=== PATIENT | female | born 1955 | race Caucasian/White ===

== ENCOUNTER → 2024-06-08 14:36 | Outpatient (BNVA) | payer MEDICARE, MEDICAID, SELFPAY | PROVIDERS: Visit Provider Physician Assistant | DX: M25.551 Pain in right hip (principal); M25.552 Pain in left hip; M16.11 Unilateral primary osteoarthritis, right hip; M89.9 Disorder of bone, unspecified | CPT/HCPCS: 73502; 99203 ==

== ENCOUNTER → 2024-07-13 08:50 | Outpatient (BNVA) | payer MEDICARE, SELFPAY | PROVIDERS: Visit Provider Student in an Organized Health Care Education/Training Program | DX: M16.11 Unilateral primary osteoarthritis, right hip (principal); M89.9 Disorder of bone, unspecified | CPT/HCPCS: 99214 ==

== ENCOUNTER → 2024-12-28 15:26 | Outpatient (BNVA) | payer OTHER, MEDICAID, SELFPAY | PROVIDERS: Visit Provider Student in an Organized Health Care Education/Training Program | DX: M25.551 Pain in right hip (principal); M25.552 Pain in left hip; M16.11 Unilateral primary osteoarthritis, right hip; M89.9 Disorder of bone, unspecified | CPT/HCPCS: 73523; 99214 ==

== ENCOUNTER 2025-01-09 10:35 | Outpatient (CLI) | payer OTHER, MEDICAID, SELFPAY ==
--- NOTE | 2025-01-09 11:00 | CT_ITS ---
WS: [id number] CT RIGHT hip for [facility] procedure HISTORY: RIGHT TOTAL HIP ARTHROPLASTY Comparison CT 05/05/2024 Date: 01/09/2025 10:51 AM TECHNIQUE: Protocol for [facility] total hip replacement has been obtained. This includes axial imaging from the hip joint through the knee joint. DLP: [id number] FINDINGS: Advanced joint arthritis RIGHT hip with [id number] articulation. Subchondral cystic change involving the femoral head and acetabulum with sclerosis. Moderate to advanced treatment change LEFT hip with subchondral cystic change in the femoral head and acetabulum. Stable lytic and sclerotic lesions LEFT acetabulum and LEFT proximal femur. Small fat-containing umbilical hernia. Stable sclerosis with cystic change involving the sacroiliac joints. CT/CT hip RT [facility] [id number] IMPRESSION: CT imaging provided for [facility] robotic total hip replacement.
== END 2025-01-09 10:36 | disposition home or self-care (01) ==
LOC: RAD 10:37
PROVIDERS: Visit Provider Student in an Organized Health Care Education/Training Program
DX: M13.851 Other specified arthritis, right hip (principal); K42.9 Umbilical hernia without obstruction or gangrene; I70.0 Atherosclerosis of aorta; N28.1 Cyst of kidney, acquired; G95.89 Other specified diseases of spinal cord
CPT/HCPCS: 73700

== ENCOUNTER 2025-01-30 10:14 | Outpatient (CLI) | payer OTHER, MEDICAID, SELFPAY ==
[2025-01-30 11:15] LABS: Hematocrit 38.5 % (36-47); Hemoglobin 12.60 g/dL (11.27-16.99); Mean Corpuscular HGB Conc 32.7 g/dL (30-55); Mean Corpuscular Hemoglobin 28.2 pg (27-33); Mean Corpuscular Volume 86.1 fl (85-98); Nucleated Red Blood Cells % 0 %; Platelet Count 211 10^3/cmm (157-399); Red Blood Count 4.47 10^6/uL (3.85-5.65); White Blood Count 5.27 10^3/uL (3.29-11.43)
[2025-01-30 11:27] LABS: Glucose Urine UA Negative (Normal); Nitrate Urine Negative (Negative); Specific Gravity, Urine 1.012 (1.005-1.030)
[2025-01-30 11:30] LABS: Alanine Aminotransferase 12 U/L (0-33); Albumin Level 4.1 g/dL (3.5-5.2); Alkaline Phosphatase 79 U/L (35-105); Anion Gap 13.8 (5-19); Aspartate Amino Transferase 20 U/L (0-32); Blood Urea Nitrogen 14 mg/dL (8-23); Calcium 9.1 mg/dL (8.5-10.5); Carbon Dioxide 24 mmol/L (22-29); Chloride 105 mmol/L (98-107); Globulin 2.6 g/dL (1.3-4.6); Glucose 109 mg/dL (65-115); Osmolality Calculated 289 mOsm/kg (285-295); Potassium 3.8 mmol/L (3.5-5.1); Sodium 139 mmol/L (136-145); Total Protein 6.7 g/dL (6.6-8.7)
[2025-01-30 11:51] LABS: Add Urine Microscopic? YES
== END 2025-01-30 10:15 | disposition home or self-care (01) ==
LOC: LAB 10:17
PROVIDERS: Visit Provider Student in an Organized Health Care Education/Training Program
DX: Z01.818 Encounter for other preprocedural examination (principal)
CPT/HCPCS: 36415; 80053; 81001; 85025

== ENCOUNTER → 2025-02-10 08:24 | Outpatient (BNVA) | payer OTHER, MEDICAID, SELFPAY | PROVIDERS: Visit Provider Physician Assistant | DX: M16.11 Unilateral primary osteoarthritis, right hip (principal); M89.9 Disorder of bone, unspecified | CPT/HCPCS: 99213 ==

== ENCOUNTER 2025-02-20 14:58 | Observation (INO) | payer MEDICARE, MEDICAID, SELFPAY ==
[2025-02-20] VITALS (16 sets, daily range): BP systolic 87–150; BP diastolic 53–77; PULSE 59–75; RESP 14–17; TEMP 36.2–36.6; O2SAT 96–100; BMI 30.9
[2025-02-20] MEDS: acetaminophen 1,000 MG/100 ML PIGGYBACK 400 MG IV ×2 (10:51→17:38)
[2025-02-20 10:57] LABS: Hematocrit 40.6 % (36-47); Hemoglobin 13.20 g/dL (11.27-16.99); Mean Corpuscular HGB Conc 32.5 g/dL (30-55); Mean Corpuscular Hemoglobin 28.3 pg (27-33); Mean Corpuscular Volume 86.9 fl (85-98); Nucleated Red Blood Cells % 0 %; Platelet Count 230 10^3/cmm (157-399); Red Blood Count 4.67 10^6/uL (3.85-5.65); White Blood Count 5.33 10^3/uL (3.29-11.43)
[2025-02-20 11:11] LABS: Anion Gap 15.8 (5-19); Blood Urea Nitrogen 15 mg/dL (8-23); Calcium 8.9 mg/dL (8.5-10.5); Carbon Dioxide 23 mmol/L (22-29); Chloride 108 mmol/L (98-107); Creatinine Clr Calc Pharmacy 67.6387; Glucose 95 mg/dL (65-115); Osmolality Calculated 297 mOsm/kg (285-295); Potassium 3.8 mmol/L (3.5-5.1); Sodium 143 mmol/L (136-145)
--- NOTE | 2025-02-20 12:15 | ANES.PREANE2 ---
Pre-Anesthetic Assessment Height/Weight: Height 1.63 m Weight 81.647 kg Temp Pulse Resp BP Pulse Ox O2 Del Method 97.5 F L 75 17 136/77 96 Room Air 02/20/25 10:34 02/20/25 10:34 02/20/25 10:34 02/20/25 10:34 02/20/25 10:34 02/20/25 10:38 Operation Date: 02/20/25 13:20 Proposed Procedures p RIGHT Raciel Robot Total Hip Arthroplasty(Right) - Amador Cabrera DO Familial anesthetic complications: None Was Beta Talib taken within 24 hours: N/A Was Clonidine taken within 24 hours: N/A Last intake: Intake Last Liquid Date 02/19/25 Last Liquid Time 22:00 Last Solid Date 02/19/25 Last Solid Time 18:00 Social No alcohol and No tobacco Exam alert, oriented x 3, clear to auscultation bilaterally and regular rate & rhythm Airway Mallampati: Class II Dentition: full Anesthetic Plan ASA status: 2 Anesthesia: Regional (specify below) Risk of > 500 ml blood loss (7ml/kg in children): No Medications/Allergies Home Medications ?Medication ?Instructions ?Recorded ?Confirmed ?Last Taken ?Type ibuprofen 800 mg tablet 800 mg PO Q8H PRN Pain 01/30/25 02/16/25 02/11/25 History multivitamin (One Daily 1 tab PO DAILY 01/30/25 02/16/25 02/11/25 History Multivitamin tablet) Allergies Allergy/AdvReac Type Severity Reaction Status Date / Time No Known Allergies Allergy Verified 02/10/25 08:37 Current Medications Generic Name Dose Route Start Last Admin Trade Name Freq PRN Reason Stop Dose Admin Sodium Chloride 1,000 mls @ 30 mls/hr 02/20/25 10:30 02/20/25 10:48 Sodium Chloride 0.9% IV 02/21/25 10:29 30 mls/hr .Q24H VIN Administration PFSH Anesthesia Medical History Bilateral hip pain Social History Smoking and tobacco/nicotine status: never used tobacco/nicotine Alcohol intake: never Substance/Drug Use: never Data Anesthesia 02/20/25 10:40 02/20/25 10:40 Short CBC 02/20/25 Range/Units 10:40 WBC 5.33 (3.29-11.43) 10^3/uL Hgb 13.20 (11.27-16.99) g/dL Hct 40.6 (36-47) % MCV 86.9 (85-98) fl Plt Count 230 (157-399) 10^3/cmm Neut % (Auto) 61.0 % Neut # (Auto) 3.25 (1.8-7.7) 10^3/uL BMP 02/20/25 10:40 Sodium 143 Potassium 3.8 Chloride 108 H Carbon Dioxide 23 BUN 15 Creatinine 0.6 Glucose 95 Calcium 8.9
--- NOTE | 2025-02-20 12:31 | W.PM.OPSUD ---
Surgery/Procedure H&P Update DATE OF PROCEDURE: February 20, 2025 DATE H&P PERFORMED: 02/10/25 H&P UPDATE INFORMATION: I have reviewed H&P completed within last 30 days, I have examined patient prior to procedure and No changes to prior documentation PREOP DIAGNOSIS: Right hip DJD PRIMARY INDICATION FOR PROCEDURE: Right hip DJD PLANNED PROCEDURE: Operation Date: 02/20/25 13:20 Proposed Procedures p RIGHT Raciel Robot Total Hip Arthroplasty(Right) - Amador Cabrera DO
[2025-02-20] MEDS: ceFAZolin 2,000 MG in sodium chloride 0.9% (plus) 50 ML 100 MG IV ×2 (13:00→17:39)
[2025-02-20] MEDS: tranexamic acid 1,000 MG/100 ML PREMIX 600 MG IV ×2 (13:20→22:09)
--- NOTE | 2025-02-20 13:51 | SUR.OPER ---
attempted to notify daughter of surgical start. no answer.
--- NOTE | 2025-02-20 13:54 | SUR.OPER ---
Daughter called back, notified of surgical start and progress.
--- NOTE | 2025-02-20 15:00 | XR_ITS ---
WS: [id number] Exam: XR hip RT 2-3V wo/w pel* [id number] Date/Time of Exam: 02/20/2025 3:13 PM Reason For Exam: R SILVIO postop Comparison 12/28/2024. Total RIGHT hip prosthesis in place in satisfactory position. Postop changes in the adjacent soft tissues. Again noted are areas of bony sclerosis in the proximal LEFT femur which are stable in appearance. XR/XR hip RT 2-3V wo/w pel* [id number] IMPRESSION: 1. Total RIGHT hip replacement in satisfactory position.
--- NOTE | 2025-02-20 15:00 | PM.OP ---
Operative Report Date of procedure: February 20, 2025 Surgeon: Amador Cabrera DO Wood Stainer: Dangelo Cabrera PA-C: PA was necessary for assistance in this case with leg positioning, assistance with hip reductions, retraction and protection of neurovascular structures as well as assistance in implantation of total hip prosthesis, assistance in wound closure and dressing application. Procedure: Preop Diagnosis?Right hip degenerative joint disease Post-op diagnosis: Right hip degenerative joint disease Procedure done: Right total hip arthroplasty?robotic assisted Raciel?posterior?approach Implants: [address] total hip arthroplasty implants 50 mm cluster hole acetabular shell 6.5 mm x (20 mm and 15 mm) acetabular screws Alpha code D MDM cementless metal liner Thompson insignia high offset size 4 hip stem Alpha code D MDM +0 mm head Surgeon: Amador Cabrera DO Estimated blood loss: 150 mL IV fluids: 1200 mL Urine output: 200 mL Complications: None Condition: stable Disposition: floor Brief History: Patient's been seen and worked up by myself in the outpatient setting and findings consistent with Right hip degenerative joint disease. Patient has failed conservative treatment this is causing him severe pain and decreased mobility. We talked about treatment options as far as nonoperative and operative intervention. ultimately through shared decision-making patient would like to proceed with a Right total hip arthroplasty?Raciel robotic assisted. we detailed out his risk benefits complications alternatives to surgical and nonsurgical treatment options. Understanding risk for surgery pt elects to proceed with Right total hip arthroplasty robotic assisted Raciel utilizing a?posterior?approach. All questions answered. Pt elects proceed with surgery today. Procedure: Patient was seen evaluate in preoperative holding area.? Consent was reviewed and signed with patient.? Correct extremity was then marked.? Patient seen evaluate by anesthesia department once cleared for surgery pt was taken back to the operative suite.? Patient underwent spinal anesthesia per the anesthesia department.? This point time pt was then placed on the operative suite and table.? Pt was then placed in lateral decubitus patient worked with the Right hip up.? Patient was secured in the lateral decubitus position with pegboard. All bony prominences well-padded he was properly secured to the bed.? At this point time the Right lower extremity was then prepped and draped in standard orthopedic fashion with care not to drape out the iliac wing for pelvic array placement.? Final timeout performed.? Patient received appropriate preoperative antibiotics. Started off with establishment of my pelvic array pins.? A small longitudinal incision was made directly over the iliac wing.? Sharp scalpel excision through skin and subcutaneous tissue directly onto bone.? Next I then loaded my pelvic pin.? This was then drilled through the iliac wing corridor with excellent fixation.? Next I then loaded the guide which was placed directly onto bone and then subsequently placed 2 more pins to secure fixation.? Next the pelvic array was then sent had excellent visualization with the Raciel robot and was secured. EKG pad was placed on the distal lateral aspect of the femur and sterile aseptic technique and use as my distal reference point. Next I proceeded with my standard?posterior?approach.? Sharp scalpel through skin and subcutaneous tissue this was centered over the greater trochanter.? I then utilized a Santamaria elevator over the gluteus shauna fascia.? Next the fascia was then split longitudinally with bipolar electrocautery.? Next a Charnley retractor was then placed.? Amanda was then placed into the abductors.? Prior to dislocating the hip we then placed our greater trochanter femur checkpoint.? We marked our appropriate checkpoint for referencing on pelvic array.? At this point in time we then established both of our checkpoints as well as referencing for leg lengths I utilized the EKG pad as my distal reference point. The legs were marked and traced to have appropriate position on the drapes to allow for accurate reading.? Preoperative leg lengths were set. A standard full-thickness release of the piriformis and the short external rotators along with the capsule to grade 1 full thick sleeve for later repair was then placed straight down to the lesser trochanter.? Lesser trochanter was then subsequently identified.? Once this was then established I then proceeded with dislocation of the femoral head.? At this point Hohmann's were then placed superiorly and inferiorly along the femoral neck..? The sciatic nerve was protected throughout this case.? At this point time I then utilized the Raciel robot and referencing point to reference different aspects along the femoral head and neck for my appropriate neck length.? These were referenced on the inferior mid substance as well as up into the superior shoulder of the femoral neck.? This marked my oscillating saw was used to make my femoral neck cut.? Femoral head was then removed. Next the leg was placed in appropriate position and my anterior and?posterior?acetabular retractors then placed.? Next I excised the labrum and then remove the pulvinar.? I did do a small release of the inferior capsule which was severely taut to allow for easier placement of my reamers as well as reduction.? Acetabulum was thoroughly irrigated. At this point in time keeping my retractors in place I subsequently loaded up the [employer] robot for my acetabular reaming.?? Next I then set my 50 reamer under the [employer] robot and subsequently held this with appropriate preplanned preop planned version of 40 degrees of abduction angle as well as 20 degrees of anteversion.? This preoperative plan was then subsequently made to accommodate for ranges of motion of impingement?that was assessed preoperatively utilizing the [employer] robotic software technology. I then subsequently reamed this to the appropriate depth with 50mm reamer.? This had excellent bleeding bone circumferentially. We opened up the acetabular shell clusterhole of the 50 mm Thompson this was then loaded onto my impacting system and then I subsequently impacted this to appropriate depth.? This was then removed from the robot and I used the Raciel probe at the center to confirm on the CT scan?that this was down on bone which it was.? Next I then drilled and placed 2 acetabular screws with excellent fixation these were drilled and measured to be 20mm & 15mm these was in the?posterior?superior aspect of the acetabulum had excellent bite and fixation.? The cup was solid and had excellent press-fit fixation. next, opened the alpha code D MDM cementless liner then subsequently placed in appropriate position and impacted into place.? I then placed a sponge into the acetabulum to protect the polyethylene while my femur preparation was performed.? At this point time I then utilized a small rongeur to clear off the shoulder of the femoral neck to clear out the soft tissue envelope for my box osteotome.? Next box osteotome was used a canal finder was placed as well as a lateral lysing rattail rasp.? Once I was appropriately lateralized I then sequentially broached up to a size 4 femoral stem.? This was impacted to appropriate depth.? This point I loaded a -4mm and subsequently reduced the hip.? At this point in time the hip was taken through range of motion before evaluating with the robot on leg lengths.? Patient appeared to have room to increase on leg lengths clinically.? The hip was taken through range of motion and had excellent stability with hip flexion and internal rotation with no evidence of instability had an slightly increased shuck.? This point time utilized the Raciel probe from our femur checkpoint down to her distal checkpoint. Satisfied with this trial implants, at this point I dislocated the hip and then called for my final implants with excellent stability in all planes.? Opened up a Thompson insignia high offset size 4 hip stem My trials were then removed and then subsequently impacted my [address] insignia high offset size 4 and hip stem to the same level.? This point in time I trialed up to a +0 mm neck length which helped match with Raciel robotic assistance had appropriate leg lengths comparative to the contralateral hip and this was confirmed clinically as well as had excellent stability I felt as though this was best combination with leg lengths being equal as well as with stability and elected for the final +0 mm MDM femoral head. Final MDM femoral head component was then opened and the trunnion was dried and this was impacted with excellent fixation and the hip was subsequently reduced.? We measured our final leg lengths which were appropriate patient had excellent stability in all ranges of motion.? This point time a robotic pins and checkpoints were removed.? I remove the femur checkpoint as well as my pelvic array and iliac wing pins.? Appropriate counts were then made.? This point time thoroughly irrigated the wound bed with pulse lavage.? Vancomycin powder was then sprinkled into the wound bed.? I then performed a standard capsular and external rotator repair utilizing #5 Ethibond and this was tied and repaired through bone tunnels hip, sciatic nerve was protected throughout this portion of the case. Was then kept in abduction external rotation and subsequently closed the fascial layer with Ethibond suture as well as running strata fix suture.? I then closed the deep subcutaneous layer as well as superficial subcutaneous layer with running strata fix suture as well as 3-0strata fix for skin.? Prineo glue dressing was then placed over the skin.? I then irrigated the pelvic array pin site.? There is were then closed with interrupted 0, 2-0 Vicryl suture and Monocryl as well as Prineo glue for the skin.? Incisions were then covered with maría elena and Silverlon dressing.? Patient was awakened from anesthesia and taken to PACU in stable condition Disposition: Patient taken to PACU in stable condition.? Patient will receive appropriate discharge instructions as well as DVT prophylaxis and pain medication.? Patient will be admitted to the floor for observation , internal medicine team for medical management.? Patient received appropriate DVT prophylaxis as well as pain medication PT/OT weightbearing as tolerated Right lower extremity with?posterior?hip precautions, Postoperative Abx and TXA.? We will follow-up with patient in the office in 2 weeks.? Patient understands agrees with current plan.? All questions answered.
--- NOTE | 2025-02-20 15:20 | W.PM.BPON ---
Date of Procedure: [February 20, 2025] Surgeon: [Dr. Cabrera DO] Manager Express(s): [Dangelo Cabrera PA-C] Procedure(s) performed: [Right total hip arthroplasty with Raciel robotic assist] Findings of the procedure(s): [Right hip degenerative joint disease. Procedure went well and as planned.] Estimated blood loss: [150 ml] Specimen(s) removed: [N/A] Post-operative diagnosis: [Right hip degenerative joint disease]
--- NOTE | 2025-02-20 15:39 | PM.PACU ---
PACU note Narrative: Patient is a 70-year-old female that just underwent a right hip total arthroplasty. Pt transferred to PACU in stable condition. Dressing is dry. pt is awake and alert. Distal pulses are palpable toes are warm and well-perfused. Cap refill is normal and under 2 seconds. Unable to perform any further motor or sensory assessment due to residual block. Pain is controlled. Exam: somnolent, arousable Disposition: admitted
--- NOTE | 2025-02-20 15:55 | ANE.PACU2 ---
Inpatient post-anesthesia follow up: Airway intact: Yes Vital signs: Temperature 99.6 F Pulse Rate 81 Respiratory Rate 17 Blood Pressure 113/74 Pulse Oximetry 98 Oxygen Delivery Me thod Room Air Oxygen Flow Rate 8 Fraction of Inspir ed Oxygen Hydration adequate: Yes Nausea and vomiting: No Pain level: 1 Mental status: Baseline
--- NOTE | 2025-02-20 15:56 | P.CONIM_ITS ---
Providers/Reason For Consult 2 Consulting Physician/Specialty*: Hospitalist, Internal medicine Reason for Consult*: Mecial management: Post operative hypotension Attending Physician: Amador Cabrera DO Primary Care Provider: Lola Naranjo NP History of Present Illness History of Present Illness Nataliia Hummel is a 70 year old female seen and examined at bedside postoperatively at the request of her orthopedic surgeon. Patient with past medical history of osteoarthritis. Patient states she takes no home medications. Her daughter was at the bedside and stated that she personally had had postoperative hypotension with her spinal's in the past, but patient states she has never had spinal before so she has never had this experience. Patient denies use of alcohol, tobacco, or illicit drugs. Patient denies current chest pain, shortness of breath, nausea, vomiting, diarrhea, abdominal pain, fever, or syncope. Review of Systems 2 General: Reports: 10 or more systems reviewed and unremarkable except in HPI and below Skin/Breast: Reports: other (right hip incision) Medications/Allergies Home Medications ?Medication ?Instructions ?Recorded ?Confirmed ?Last Taken ?Type ibuprofen 800 mg tablet 800 mg PO Q8H PRN Pain 01/3002/16/25 02/11/25 History multivitamin (One Daily 1 tab PO DAILY 01/30/2510/0502/11/25 History Multivitamin tablet) Allergies Allergy/AdvReac Type Severity Reaction Status Date / Time No Known Allergies Allergy Verified 02/10/25 08:37 Current Medications Generic Name Dose Route Start Last Admin Trade Name Freq PRN Reason Stop Dose Admin Sodium Chloride 1,000 mls @ 30 mls/hr 02/20/25 10:30 02/20/25 14:23 Sodium Chloride 0.9% IV 02/21/25 10:29 Infused .Q24H VIN Infusion PFSH Acute 2 PFSH: Medical History Bilateral hip pain Social History Smoking and tobacco/nicotine status: never used tobacco/nicotine Alcohol intake: never Substance/Drug Use: never Vitals/I&O/Wt Last Vital Signs Temp 97.2 F L 02/20/25 15:46 Pulse 61 02/20/25 15:46 Resp 16 02/20/25 15:46 BP 94/63 02/20/25 15:46 Pulse Ox 100 02/20/25 15:46 O2 Del Method Room Air 02/20/25 15:46 O2 Flow Rate 8 02/20/25 15:21 02/20/25 02/20/25 02/20/25 06:59 14:59 22:59 Intake Total 1150 / 1150 200 / 1350 Output Total 350 / 350 Balance 1150 / 1150 -150 / 1000 Weight last 48 hrs Weight 81.647 kg Physical Exam 2 Const: COMMON NORMALS: no acute distress, patient oriented x3, healthy appearing, alert and well nourished GENERAL APPEARANCE: cooperative, comfortable, well kempt and well developed ORIENTATION/CONSCIOUSNESS: Yes awake, Yes oriented to person, Yes oriented to place and Yes oriented to time HENMT: COMMON NORMALS: normocephalic, atraumatic, Normal external nose present and moist oral mucous membranes HEAD & SCALP: normocephalic and atraumatic NOSE: Normal external nose present Eye: COMMON NORMALS: Equal, round and reactive pupils present, EOMs intact bilaterally, conjunctivae normal, no scleral icterus, no papilledema, normal visual navarrete by confrontation and fundi normal bilaterally CONJUNCTIVA: Yes conjunctivae normal PUPIL: Yes Equal, round and reactive pupils present D IRECT OPHTHALMOSCOPY: Yes no papilledema and Yes fundi normal bilaterally Neck/C-Spine: COMMON NORMALS: no JVD GENERAL: Yes normal visual inspection Lymph: LYMPHATIC: no lymphadenopathy noted Chest: CHEST: Yes Symmetrical chest wall rise Resp: COMMON NORMALS: normal respiratory effort, No retractions, No use of accessory muscles, clear to auscultation bilaterally and percussion normal A USCULTATION: clear to auscultation bilaterally PERCUSSION: percussion normal Cardio: COMMON NORMALS: no JVD, regular rate, regular rhythm, S1 normal heart sound present, S2 normal heart sound present, No gallops present (Cardio), No clicks present (Cardio), No murmurs present (Cardio), No rub (Cardio) and Peripheral pulses 2+ throughout RATE: regular rate RHYTHM: regular rhythm HEART SOUNDS: S1 normal heart sound present and S2 normal heart sound present PERIPHERAL PULSES: Peripheral pulses 2+ throughout GI: COMMON NORMALS: Soft to palpation INSPECTION: Yes normal to inspection AUSCULTATION: Yes normoactive bowel sounds PALPATION: Yes Soft to palpation Extremity: COMMON NORMALS: normal to inspection and no pedal edema N ARRATIVE EXTREMITY EXAM: Right hip incision covered, clean dry and intact, unable to visualize incision. Surrounding tissue without edema or erythema. Neuro: COMMON NORMALS: patient oriented x3 SENSORIUM/ORIENTATION: Yes alert, Yes oriented to person, Yes oriented to place and Yes oriented to time Psych: COMMON NORMALS: mental status grossly normal, Normal thought process present, cooperative, normal affect, speech normal, activity/motor behavior normal, denies hallucinations, denies homicidal ideation and denies suicidal ideation APPEARANCE: Yes well kempt SPEECH: Yes normal speech THOUGHT PROCESS: Normal thought process present Skin: NARRATIVE SKIN EXAM: As documented above, right hip incision covered with dressing and dressing is clean dry and intact. Urinary Catheter Management: Dueñas: Cath Placed During This Visit: yes Urinary Catheter Date of Insertion: 02/20/25 Urinary Catheter Time of Insertion: 13:20 Data 02/20/25 10:40 02/20/25 10:40 A&P Assessment and plan 1. Osteoarthritis of right hip: 2. S/P total right hip arthroplasty: Plan: Osteoarthritis right hip Status post right total hip arthroplasty - Activity and weight bearing status per Dr. Cabrera - Ancef 2g q8rh x 3 doses and Vancomycin 1g x 1 for surgical prophylaxis - Encourage incentive spirometry - Bowel Regimen - Multi-modal pain control, will have to be cautious with use of opiates with current hypotension - PT evaluation pending Postoperative hypotension - B/p 94/63 - Most likely secondary to spinal - Continue IV fluid hydration with LR at 100mL/hr - Monitor - Fall precautions VTE PPX: Eliquis per Ortho GI PPX: PPI Code Status: Full Code PDMP PDMP Reviewed: Not Reviewed Coding Level of Care Code Acute Code for Chg Fwd Diagnoses Osteoarthritis of right hip M16.11 S/P total right hip arthroplasty Z96.641
[2025-02-20] MEDS: sennosides-docusate Tablet 2 TAB PO (17:40)
[2025-02-20] MEDS: calcium carb-vit d 600mg/400unit 1 Tablet 1 EACH PO (17:40)
[2025-02-20] MEDS: mupirocin oint 22 gm 1 APPLIC NASAL (17:42)
[2025-02-20] MEDS: chlorhexidine gluconate 0.12% Btl 473 mL 30 ML MUCOUS MEM ×2 (17:43→22:10)
[2025-02-20] MEDS: oxyCODONE 5 mg IR Tab/Cap PO (19:29)
[2025-02-20] MEDS: HYDROmorphone 0.5 MG/0.5 ML INJ IVP (20:48)
[2025-02-20] MEDS: ondansetron 2 mg/ML SDV 2 mL 4 MG IVP (22:15)
[2025-02-21] VITALS (10 sets, daily range): BP systolic 107–128; BP diastolic 63–85; PULSE 61–94; RESP 14–18; TEMP 36.7–37.7; O2SAT 90–98
[2025-02-21] MEDS: oxyCODONE 5 mg IR Tab/Cap PO ×3 (01:12→21:48)
[2025-02-21] MEDS: ceFAZolin 2,000 MG in sodium chloride 0.9% (plus) 50 ML 100 MG IV (01:12)
[2025-02-21] MEDS: acetaminophen 1,000 MG/100 ML PIGGYBACK 400 MG IV ×2 (01:13→09:22)
[2025-02-21 04:56] LABS: Hematocrit 31.5 % (36-47); Hemoglobin 10.30 g/dL (11.27-16.99); Mean Corpuscular HGB Conc 32.7 g/dL (30-55); Mean Corpuscular Hemoglobin 29.2 pg (27-33); Mean Corpuscular Volume 89.2 fl (85-98); Nucleated Red Blood Cells % 0 %; Platelet Count 177 10^3/cmm (157-399); Red Blood Count 3.53 10^6/uL (3.85-5.65); White Blood Count 7.46 10^3/uL (3.29-11.43)
[2025-02-21] MEDS: chlorhexidine gluconate 0.12% Btl 473 mL 30 ML MUCOUS MEM ×2 (04:58→21:48)
[2025-02-21] MEDS: calcium carb-vit d 600mg/400unit 1 Tablet 1 EACH PO ×2 (04:58→17:40)
[2025-02-21] MEDS: sennosides-docusate Tablet 2 TAB PO ×2 (04:58→17:40)
[2025-02-21] MEDS: multivitamin therapeutic Tablet 1 TAB PO (04:58)
[2025-02-21] MEDS: ondansetron 2 mg/ML SDV 2 mL 4 MG IVP ×2 (04:58→13:16)
[2025-02-21] MEDS: mupirocin oint 22 gm 1 APPLIC NASAL (04:59)
[2025-02-21 05:16] LABS: Anion Gap 14.2 (5-19); Blood Urea Nitrogen 16 mg/dL (8-23); Calcium 8.4 mg/dL (8.5-10.5); Carbon Dioxide 24 mmol/L (22-29); Chloride 108 mmol/L (98-107); Creatinine Clr Calc Pharmacy 70.9558; Glucose 143 mg/dL (65-115); Osmolality Calculated 298 mOsm/kg (285-295); Potassium 4.2 mmol/L (3.5-5.1); Sodium 142 mmol/L (136-145)
--- NOTE | 2025-02-21 07:55 | P.DS_ITS ---
Discharge Providers Date of Admission: 02/20/25 14:58 Date of Discharge: February 21, 2025 Attending Provider at Admission: Amador Cabrera DO Attending Provider at Discharge: Amador Cabrera DO Primary Care Provider: Lola Naranjo NP Diagnoses at Discharge Discharge Diagnosis 1. Osteoarthritis of right hip: 2. S/P total right hip arthroplasty: Reason for Visit Reason for Visit: M16.11 Physical Exam Urinary Catheter Management: Dueñas: Cath Placed During This Visit: yes, but has since been removed by the nurse Reason for Continuing Indwelling Catheter: Decision to DC Catheter Urinary Catheter Date of Insertion: 02/20/25 Urinary Catheter Time of Insertion: 13:20 Date Urinary Catheter Removed: 02/21/25 Time Urinary Catheter Discontinued: 06:30 Discharge Data Studies Completed and Pending Completed Studies During Hospitalization Category Date Time Status XR hip RT 2-3V wo/w pel* [id number] Routine Exams 02/20/25 15:00 Completed Pending at discharge Category Date Time Status Basic Metabolic Panel AM LABS Lab 02/22/25 04:00 Ordered Basic Metabolic Panel AM LABS Lab 02/23/25 04:00 Ordered Complete Blood Count w/Auto AM LABS Lab 02/22/25 04:00 Ordered Complete Blood Count w/Auto AM LABS Lab 02/23/25 04:00 Ordered Radiology Impressions Hip/Pelvis X-Ray 02/20/25 15:00 IMPRESSION: 1. Total RIGHT hip replacement in satisfactory position. Laboratory Results WBC 7.46 10^3/uL (3.29-11.43) 02/21/25 04:22 RBC 3.53 10^6/uL (3.85-5.65) L 02/21/25 04:22 Hgb 10.30 g/dL (11.27-16.99) L 02/21/25 04:22 Hct 31.5 % (36-47) L 02/21/25 04:22 MCV 89.2 fl (85-98) 02/21/25 04:22 MCH 29.2 pg (27-33) 02/21/25 04:22 MCHC 32.7 g/dL (30-55) 02/21/25 04:22 RDW 13.7 % (12.1-15.1) 02/21/25 04:22 Plt Count 177 10^3/cmm (157-399) 02/21/25 04:22 MPV 10.4 fL (7.4-10.4) 02/21/25 04:22 Neut % (Auto) 84.2 % 02/21/25 04:22 Lymph % (Auto) 9.8 % 02/21/25 04:22 [place] % (Auto) 5.2 % 02/21/25 04:22 Eos % (Auto) 0.4 % 02/21/25 04:22 Baso % (Auto) 0.1 % 02/21/25 04:22 Neut # (Auto) 6.28 10^3/uL (1.8-7.7) 02/21/25 04:22 Lymph # (Auto) 0.7 10^3/uL (0.8-4.8) L 02/21/25 04:22 [place] # (Auto) 0.4 10^3/uL (0.2-0.9) 02/21/25 04:22 Eos # (Auto) 0.0 10^3/uL (0.0-0.8) 02/21/25 04:22 Baso # (Auto) 0.0 10^3/uL (0.0-0.1) 02/21/25 04:22 Nucleated RBC % (auto) 0 % 02/21/25 04:22 Nucleated RBCs # 0.0 /100WBC 02/21/25 04:22 Sodium 142 mmol/L (136-145) 02/21/25 04:22 Potassium 4.2 mmol/L (3.5-5.1) 02/21/25 04:22 Chloride 108 mmol/L (98-107) H 02/21/25 04:22 Carbon Dioxide 24 mmol/L (22-29) 02/21/25 04:22 Anion Gap 14.2 (5-19) 02/21/25 04:22 BUN 16 mg/dL (8-23) 02/21/25 04:22 Creatinine 0.6 mg/dL (0.5-0.9) 02/21/25 04:22 GFR Calculation 98.8 mL/min (90-130) 02/21/25 04:22 Glucose 143 mg/dL (65-115) H 02/21/25 04:22 Calculated Osmolality 298 mOsm/kg (285-295) H 02/21/25 04:22 Calcium 8.4 mg/dL (8.5-10.5) L 02/21/25 04:22 Blood Type A Negative 02/20/25 10:40 Rho(D) Type Rh negative 02/20/25 10:40 Antibody Screen Negative 02/20/25 10:40 Vitals Last Vital Signs Temp 98.3 F 02/21/25 07:31 Pulse 74 02/21/25 07:31 Resp 18 02/21/25 07:31 BP 121/77 02/21/25 07:31 Pulse Ox 96 02/21/25 07:31 O2 Del Method Room Air 02/21/25 07:31 O2 Flow Rate 8 02/20/25 15:21 Discharge Plan Discharge Patient Disposition: Home Health Service Condition: Stable Prescriptions: New Eliquis 2.5 mg tablet 2.5 mg PO BID 14 Days Qty: 28 0RF ondansetron 4 mg tablet,disintegrating 4 mg PO Q8H PRN (Reason: nausea and vomiting) 3 Days Qty: 9 0RF No Action multivitamin [One Daily Multivitamin] Tablet 1 tab PO DAILY ibuprofen 800 mg tablet 800 mg PO Q8H PRN (Reason: Pain) Referrals: Lola Naranjo NP [Primary Care Provider, Nurse Practitioner] - 1-3 days Amador Cabrera DO [Physician, Orthopedics] - 7-10 days Discharge Diet: Regular Discharge Activity: Limit activity as instructed and Use walker/crutches as instructed Patient Instructions: Acute Wound Care (DC), Opioid Safety, Post Anesthesia Care, Patient Portal & Rosa Instructions Activity Restrictions/Additional Instructions: Orthopedic discharge instructions: Patient should keep dressings clean dry and intact Okay to shower over dressings if they do become wet these should be removed and new dressings applied Keep incisions clean dry and intact, leave Silverlon bandage dressings on in place for 7 days after that may rinse incisions with warm soapy water pat dry and redress with a dry dressing Weight-bear as tolerated to operative lower extremity Posterior hip precautions as instructed by physical therapy--posterior avoid hip flexion past 90 degrees, adduction, avoid internal rotation When sleeping or lying in bed in supine position use abduction pillow to prevent legs from crossing midline Ice as needed for pain and swelling Take pain medication as prescribed Take antinausea medication as needed May supplement for pain with Tylenol [id number] as needed(1000 mg every 8 hours-do not exceed more than 3000mg in 24-hour period) Supplement with Citracal vitamin D for bone health and healing Pain medication can cause constipation. take [id number] stool softeners an d or MiraLAX. Take blood thinner as prescribed (Eliquis) Follow-up in the orthopedic office in 2 weeks Contact the office for any questions or concerns Coding Level of Care Code Acute Code for Valery Preciado Diagnoses Osteoarthritis of right hip M16.11 S/P total right hip arthroplasty Z96.641
[2025-02-21] MEDS: ceFAZolin 2,000 MG in sodium chloride 0.9% (plus) 50 ML 400 MG IV (09:23)
[2025-02-21] MEDS: APIXABAN 2.5 MG TABLET PO ×2 (09:24→21:48)
--- NOTE | 2025-02-21 10:02 | PC.CHAP ---
Pastoral Care Encounter/Spiritual Assessment Type of Contact [] Declined ball maker visit [] Patient/Family/Request visit [] Outpatient visit [] Follow-up visit [] Physician referral [] Code/Alert [x] Routine visit [] Staff referral [] Actively dying [] Patient sleeping [x] Family support [] [] Out of room [] Palliative care [] [] Receiving care in room [] Pre-surgical visit [] Trauma [] Long length of stay [] ICU visit [] Other: Relational/Emotional Strength [x] Patient feels connected with others/family/visitors/staff [] Distress [] Loneliness/isolation [] Abandonment Spirituality of Patient [x] Person of Viv [] Attends [facility] of their Viv [x] Believes in Prayer [] Reads Bible or Caodaism materials [] There are Spiritual issues to be addressed Street Inspector Interventions [x] Prayer [x] Active listening [x] Non-anxious presence [x] Spiritual/emotional support [] Crisis/trauma care [] Spiritual counseling [] Bereavement support [] Provided bereavement packet [] Provided Bible/devotional materials [] Provided toy/stuffed animal, coloring book to patient or family member [] Provided Communion [] Anointing/[place] [] Salvation [x] Completed spiritual assessment [] Other: Impact on Illness or Injury [] Angry [] Fearful [] Anxious [] Often cries [] Exhaustion [] Unable to work [] Unable to attend jew [] Unable to walk/stand [] Unable to read [] Unable to drive [] Unable to eat/drink [] Unable to sleep [] Unable to be with family [] Patient intubated [] Other: Summary Time spent with patient 5 min
--- NOTE | 2025-02-21 10:13 | P.PN_ITS ---
Subjective 2 Subjective: Patient seen and examined at bedside on hospital rounds today. Initial examination patient mild right hip pain, stable vital signs. However when physical therapy did get the patient up to walk patient had drop in blood pressure. Patient has had fluids running, positive for orthostatic hypotension that does not seem to be volume related. Will try midodrine, instructed patient to monitor blood pressure if blood pressure is low when standing to sit back down. Patient is otherwise stable, discharge planning for attending orthopedic surgeon. Hospitalist team grateful for the opportunity to consult in the medical management this patient. Vitals/I&O/Wt Last Vital Signs Temp 99.9 F H 02/21/25 09:37 Pulse 76 02/21/25 09:37 Resp 18 02/21/25 09:37 BP 115/70 02/21/25 09:37 Pulse Ox 98 02/21/25 09:37 O2 Del Method Room Air 02/21/25 09:37 O2 Flow Rate 8 02/20/25 15:21 02/20/25 02/21/25 02/21/25 22:59 06:59 14:59 Intake Total 810 / 1960 836.667 / 2796.667 240 / 240 Output Total 1350 / 1350 200 / 1550 Balance -540 / 610 636.667 / 1246.667 240 / 240 Weight last 48 hrs Weight 89.358 kg Weight 89.675 kg Weight 81.647 kg Physical Exam 2 Const: COMMON NORMALS: no acute distress, patient oriented x3, healthy appearing, alert and well nourished GENERAL APPEARANCE: cooperative, comfortable, well kempt and well developed ORIENTATION/CONSCIOUSNESS: Yes awake, Yes oriented to person, Yes oriented to place and Yes oriented to time HENMT: COMMON NORMALS: normocephalic, atraumatic, Normal external nose present and moist oral mucous membranes HEAD & SCALP: normocephalic and atraumatic NOSE: Normal external nose present Eye: COMMON NORMALS: Equal, round and reactive pupils present, EOMs intact bilaterally, conjunctivae normal, no scleral icterus, no papilledema, normal visual navarrete by confrontation and fundi normal bilaterally CONJUNCTIVA: Yes conjunctivae normal PUPIL: Yes Equal, round and reactive pupils present D IRECT OPHTHALMOSCOPY: Yes no papilledema and Yes fundi normal bilaterally Neck/C-Spine: COMMON NORMALS: no JVD GENERAL: Yes normal visual inspection Lymph: LYMPHATIC: no lymphadenopathy noted Chest: CHEST: Yes Symmetrical chest wall rise Resp: COMMON NORMALS: normal respiratory effort, No retractions, No use of accessory muscles, clear to auscultation bilaterally and percussion normal A USCULTATION: clear to auscultation bilaterally PERCUSSION: percussion normal Cardio: COMMON NORMALS: no JVD, regular rate, regular rhythm, S1 normal heart sound present, S2 normal heart sound present, No gallops present (Cardio), No clicks present (Cardio), No murmurs present (Cardio), No rub (Cardio) and Peripheral pulses 2+ throughout RATE: regular rate RHYTHM: regular rhythm HEART SOUNDS: S1 normal heart sound present and S2 normal heart sound present PERIPHERAL PULSES: Peripheral pulses 2+ throughout GI: COMMON NORMALS: Soft to palpation INSPECTION: Yes normal to inspection AUSCULTATION: Yes normoactive bowel sounds PALPATION: Yes Soft to palpation Extremity: COMMON NORMALS: normal to inspection and no pedal edema N ARRATIVE EXTREMITY EXAM: Right hip incision covered, clean dry and intact, unable to visualize incision. Surrounding tissue without edema or erythema. Neuro: COMMON NORMALS: patient oriented x3 SENSORIUM/ORIENTATION: Yes alert, Yes oriented to person, Yes oriented to place and Yes oriented to time Psych: COMMON NORMALS: mental status grossly normal, Normal thought process present, cooperative, normal affect, speech normal, activity/motor behavior normal, denies hallucinations, denies homicidal ideation and denies suicidal ideation APPEARANCE: Yes well kempt SPEECH: Yes normal speech THOUGHT PROCESS: Normal thought process present Skin: NARRATIVE SKIN EXAM: As documented above, right hip incision covered with dressing and dressing is clean dry and intact. Urinary Catheter Management: Dueñas: Cath Placed During This Visit: yes, but has since been removed by the nurse Reason for Continuing Indwelling Catheter: Decision to DC Catheter Urinary Catheter Date of Insertion: 02/20/25 Urinary Catheter Time of Insertion: 13:20 Date Urinary Catheter Removed: 02/21/25 Time Urinary Catheter Discontinued: 06:30 Data 02/21/25 04:22 02/21/25 04:22 A&P Assessment and plan 1. Osteoarthritis of right hip: 2. S/P total right hip arthroplasty: Plan: Osteoarthritis right hip Status post right total hip arthroplasty - Activity and weight bearing status per Dr. Cabrera - Elizabethef 2g q8rh x 3 doses and Vancomycin 1g x 1 for surgical prophylaxis - Encourage incentive spirometry - Bowel Regimen - Multi-modal pain control - PT evaluation and recommendations appreciated - Discharge planning per attending Postoperative hypotension - B/p 94/63, now 115/70 - Positive orthostatics, trial midrodrine and continue blood pressure log outpatient - IV fluid completed - Advised compression stockings at discharge - Fall precautions VTE PPX: Eliquis per Ortho GI PPX: PPI Code Status: Full Code PDMP PDMP Reviewed: Not Reviewed Attestations 2 Medical Necessity Statement*: Overnight monitoring with hypotension Coding Level of Care Code Acute Code for Chg Fwd Diagnoses Osteoarthritis of right hip M16.11 S/P total right hip arthroplasty Z96.641
--- NOTE | 2025-02-21 16:46 | PM.PN ---
Subjective Subjective: Patient is postoperative day 1 from right total hip arthroplasty, patient has had orthostatics and has been minimal work with therapy today due to this as well as having issues with some nausea and pain. Internal medicine on board for medical management Vitals/I&O/Wt Last Vital Signs Temp 99.8 F H 02/21/25 15:04 Pulse 93 02/21/25 15:04 Resp 14 02/21/25 15:04 BP 128/85 02/21/25 15:04 Pulse Ox 90 02/21/25 15:04 O2 Del Method Room Air 02/21/25 15:04 O2 Flow Rate 8 02/20/25 15:21 02/21/25 02/21/25 02/21/25 06:59 14:59 22:59 Intake Total 836.667 / 2796.667 1510 / 1510 Output Total 200 / 1550 Balance 636.667 / 2213.084 2395 / 1510 Weight last 48 hrs Weight 197 lb Weight 197 lb 11.2 oz Weight 180 lb Physical Exam Narrative: Postop right total hip exam Postoperative maría elena incisional VAC dressing on in place with good seal no evidence of saturation compartment soft compressible normal postoperative swelling and tenderness palpation about the right hip second incision with Silverlon clean dry and intact. Patient's distal pulses intact 2+ calf soft nontender patient able to tolerate gentle hip range of motion with minimal pain or discomfort. She is able to perform a straight leg raise as well as able to plantarflex and dorsiflex ankle and wiggle toes. Normal postoperative tenderness palpation about the right hip Urinary Catheter Management: Dueñas: Cath Placed During This Visit: yes, but has since been removed by the nurse Reason for Continuing Indwelling Catheter: Decision to DC Catheter Urinary Catheter Date of Insertion: 02/20/25 Urinary Catheter Time of Insertion: 13:20 Date Urinary Catheter Removed: 02/21/25 Time Urinary Catheter Discontinued: 06:30 Data 02/21/25 04:22 02/21/25 04:22 Xray Ortho: Radiologist's impression: Patient: Nataliia Hummel Unit #: [id number] : 1955 Age/Sex: 70 / F ADM Date: 02/20/25 Loc: [facility] Room/Bed: [facility] Attending Dr: Amador Deborah DO Ordering Provider/Ordering MD: Amador Cabrera Date of Service: 02/20/25 Procedure(s): XR hip RT 2-3V wo/w pel* [id number] Accession Number(s): [id number] Report Number: [id number] WS: [id number] Exam: XR hip RT 2-3V wo/w pel* [id number] Date/Time of Exam: 02/20/2025 3:13 PM Reason For Exam: R SILVIO postop Comparison 12/28/2024. Total RIGHT hip prosthesis in place in satisfactory position. Postop changes in the adjacent soft tissues. Again noted are areas of bony sclerosis in the proximal LEFT femur which are stable in appearance. XR/XR hip RT 2-3V wo/w pel* [id number] IMPRESSION: 1. Total RIGHT hip replacement in satisfactory position. A&P Assessment and plan 1. S/P total right hip arthroplasty: 2. Osteoarthritis of right hip: Plan: Postoperative day 1 right total hip arthroplasty?Raciel robotic assisted posterior approach Weight-bear as tolerate right lower extremity Posterior hip precautions PT/OT DVT prophylaxis?Nathan started today Internal medicine on board for medical management appreciate assistance in care Postoperative x-rays reviewed stable right total hip arthroplasty Pain control Antinausea Resume diet Labs reviewed Case management for discharge planning Patient at this point has been slow to progress today and really has not had much work with physical therapy due to orthostatics as well as nausea and pain. At this point in time I feel patient would not be safe for discharge today and would benefit from 1 more additional night stay where we can hopefully get her up moving better with therapy and goals of hopefully discharge home with home health care tomorrow patient understands and agrees with current plan. All questions answered. PDMP PDMP Reviewed: Not Reviewed Attestations Medical Necessity Statement*: Ongoing care status post right total hip arthroplasty, having postoperative orthostatics during physical therapy as well as nausea today requiring additional night stay Coding Level of Care Code Acute Code for Chg Fwd Diagnoses S/P total right hip arthroplasty Z96.641 Osteoarthritis of right hip M16.11
[2025-02-22] VITALS: BP 133/74; PULSE 90; RESP 24; TEMP 38.2; O2SAT 97
--- NOTE | 2025-02-22 00:32 | XRR_ITS ---
PROCEDURE INFORMATION: Exam: XR Chest Exam date and time: 02/22/2025 1:57 AM Age: 70 years old Clinical indication: Fever; Additional info: Fever, post op TECHNIQUE: Imaging protocol: Radiologic exam of the chest. Views: 1 view. COMPARISON: CT chest denisl w/*[id number] 05/05/2024 10:48 AM FINDINGS: Lungs: Unremarkable. No consolidation. Pleural spaces: Unremarkable. No pleural effusion. No pneumothorax. Heart/Mediastinum: Unremarkable. No cardiomegaly. Bones/joints: Unremarkable. XR/XR chest 1V portable [id number] IMPRESSION: No acute findings.
[2025-02-22] MEDS: ondansetron 2 mg/ML SDV 2 mL 4 MG IVP (01:02)
[2025-02-22] MEDS: polyethylene glycol 3350 Pkt 17 gm PO (01:02)
[2025-02-22 04:00] VITALS: BP 111/64; PULSE 84; RESP 16; TEMP 36.9; O2SAT 91
[2025-02-22] MEDS: calcium carb-vit d 600mg/400unit 1 Tablet 1 EACH PO (05:10)
[2025-02-22] MEDS: multivitamin therapeutic Tablet 1 TAB PO (05:10)
[2025-02-22] MEDS: chlorhexidine gluconate 0.12% Btl 473 mL 30 ML MUCOUS MEM (05:11)
[2025-02-22] MEDS: mupirocin oint 22 gm 1 APPLIC NASAL (05:11)
[2025-02-22] MEDS: sennosides-docusate Tablet 2 TAB PO (05:11)
[2025-02-22 05:28] VITALS: BMI 32.5
[2025-02-22 05:33] LABS: Hematocrit 30.1 % (36-47); Hemoglobin 9.90 g/dL (11.27-16.99); Mean Corpuscular HGB Conc 32.9 g/dL (30-55); Mean Corpuscular Hemoglobin 29.2 pg (27-33); Mean Corpuscular Volume 88.8 fl (85-98); Nucleated Red Blood Cells % 0 %; Platelet Count 192 10^3/cmm (157-399); Red Blood Count 3.39 10^6/uL (3.85-5.65); White Blood Count 11.78 10^3/uL (3.29-11.43)
[2025-02-22 05:58] LABS: Anion Gap 13.9 (5-19); Blood Urea Nitrogen 23 mg/dL (8-23); Calcium 8.8 mg/dL (8.5-10.5); Carbon Dioxide 25 mmol/L (22-29); Chloride 103 mmol/L (98-107); Creatinine Clr Calc Pharmacy 69.4373; Glucose 141 mg/dL (65-115); Osmolality Calculated 292 mOsm/kg (285-295); Potassium 3.9 mmol/L (3.5-5.1); Sodium 138 mmol/L (136-145)
[2025-02-22 07:29] VITALS: BP 107/63; PULSE 83; RESP 15; TEMP 37.6; O2SAT 91
--- NOTE | 2025-02-22 07:36 | P.PN_ITS ---
Subjective 2 Subjective: Patient seen and examined at bedside on hospital rounds today. Patient sitting up in bed stating right hip pain but denies any new or worsening symptoms. Patient had mildly elevated WBC 11.78 which could be secondary to surgery. Ordered urinalysis, but patient denies dysuria. Patient did well with the initiation of midodrine, blood pressure within normal limits, will need to continue at discharge until patient follows up with primary care provider within 1 to 3 days of discharge. Physical therapy recommended patient to have home health, patient refuses home health stating that she would not like to go to outpatient physical therapy. Greatly appreciate case management with discharge planning. Will defer to attending on dishcarge. Hospitalist team greatful for the opportunity to participate in the medical management of this patient. Vitals/I&O/Wt Last Vital Signs Temp 99.6 F 02/22/25 07:29 Pulse 83 02/22/25 07:29 Resp 15 02/22/25 07:29 BP 107/63 02/22/25 07:29 Pulse Ox 91 02/22/25 07:29 O2 Del Method Room Air 02/22/25 07:29 O2 Flow Rate 8 02/20/25 15:21 02/21/25 02/22/25 02/22/25 22:59 06:59 14:59 Intake Total 20 / 1530 Output Total 500 / 500 Balance 20 / 1530 -500 / 1030 Weight last 48 hrs Weight 86 kg Weight 89.358 kg Weight 89.675 kg Weight 81.647 kg Physical Exam 2 Const: COMMON NORMALS: no acute distress, patient oriented x3, healthy appearing, alert and well nourished GENERAL APPEARANCE: cooperative, comfortable, well kempt and well developed ORIENTATION/CONSCIOUSNESS: Yes awake, Yes oriented to person, Yes oriented to place and Yes oriented to time HENMT: COMMON NORMALS: normocephalic, atraumatic, Normal external nose present and moist oral mucous membranes HEAD & SCALP: normocephalic and atraumatic NOSE: Normal external nose present Eye: COMMON NORMALS: Equal, round and reactive pupils present, EOMs intact bilaterally, conjunctivae normal, no scleral icterus, no papilledema, normal visual navarrete by confrontation and fundi normal bilaterally CONJUNCTIVA: Yes conjunctivae normal PUPIL: Yes Equal, round and reactive pupils present D IRECT OPHTHALMOSCOPY: Yes no papilledema and Yes fundi normal bilaterally Neck/C-Spine: COMMON NORMALS: no JVD GENERAL: Yes normal visual inspection Lymph: LYMPHATIC: no lymphadenopathy noted Chest: CHEST: Yes Symmetrical chest wall rise Resp: COMMON NORMALS: normal respiratory effort, No retractions, No use of accessory muscles, clear to auscultation bilaterally and percussion normal A USCULTATION: clear to auscultation bilaterally PERCUSSION: percussion normal Cardio: COMMON NORMALS: no JVD, regular rate, regular rhythm, S1 normal heart sound present, S2 normal heart sound present, No gallops present (Cardio), No clicks present (Cardio), No murmurs present (Cardio), No rub (Cardio) and Peripheral pulses 2+ throughout RATE: regular rate RHYTHM: regular rhythm HEART SOUNDS: S1 normal heart sound present and S2 normal heart sound present PERIPHERAL PULSES: Peripheral pulses 2+ throughout GI: COMMON NORMALS: Soft to palpation INSPECTION: Yes normal to inspection AUSCULTATION: Yes normoactive bowel sounds PALPATION: Yes Soft to palpation Extremity: COMMON NORMALS: normal to inspection and no pedal edema N ARRATIVE EXTREMITY EXAM: Right hip incision covered, clean dry and intact, unable to visualize incision. Surrounding tissue without edema or erythema. Neuro: COMMON NORMALS: patient oriented x3 SENSORIUM/ORIENTATION: Yes alert, Yes oriented to person, Yes oriented to place and Yes oriented to time Psych: COMMON NORMALS: mental status grossly normal, Normal thought process present, cooperative, normal affect, speech normal, activity/motor behavior normal, denies hallucinations, denies homicidal ideation and denies suicidal ideation APPEARANCE: Yes well kempt SPEECH: Yes normal speech THOUGHT PROCESS: Normal thought process present Skin: NARRATIVE SKIN EXAM: As documented above, right hip incision covered with dressing and dressing is clean dry and intact. Urinary Catheter Management: Dueñas: Cath Placed During This Visit: yes, but has since been removed by the nurse Reason for Continuing Indwelling Catheter: Decision to DC Catheter Urinary Catheter Date of Insertion: 02/20/25 Urinary Catheter Time of Insertion: 13:20 Date Urinary Catheter Removed: 02/21/25 Time Urinary Catheter Discontinued: 07:45 Data 02/22/25 04:16 02/22/25 04:16 A&P Assessment and plan 1. Osteoarthritis of right hip: 2. S/P total right hip arthroplasty: Plan: Osteoarthritis right hip Status post right total hip arthroplasty - Activity and weight bearing status per Dr. Cabrera - Ancef 2g q8rh x 3 doses and Vancomycin 1g x 1 for surgical prophylaxis - Encourage incentive spirometry - Bowel Regimen - Multi-modal pain control - PT evaluation and recommendations appreciated, referred to outpatient PT - Discharge planning per attending Postoperative hypotension, resolved - Positive orthostatics, - Continue midodrine - Advised compression stockings at discharge - Fall precautions Leukocytosis - WBC 11.78 - This could be reaction to surgery, will need outpatient monitoring - Patient denies any symptoms other than right hip pain - Pending urinalysis VTE PPX: Eliquis per Ortho GI PPX: PPI Code Status: Full Code PDMP PDMP Reviewed: Not Reviewed Attestations 2 Medical Necessity Statement*: Ongoing care status post right total hip arthroplasty, having postoperative orthostatics during physical therapy as well as nausea today requiring additional night stay Coding Level of Care Code 86353 Diagnoses Osteoarthritis of right hip M16.11 S/P total right hip arthroplasty Z96.641
[2025-02-22 09:31] VITALS: RESP 16
[2025-02-22] MEDS: oxyCODONE 5 mg IR Tab/Cap PO (09:31)
[2025-02-22] MEDS: APIXABAN 2.5 MG TABLET PO (09:31)
[2025-02-22 10:29] LABS: Glucose Urine UA 1+ (Normal); Nitrate Urine Negative (Negative)
[2025-02-22 10:34] LABS: Add Urine Microscopic? YES
[2025-02-22 10:53] LABS: Specific Gravity, Urine 1.036 (1.005-1.030)
[2025-02-22 10:54] LABS: UA Slide Review UA Slide Review Perf
[2025-02-22 11:15] VITALS: BP 107/58; PULSE 73; RESP 14; TEMP 37.3; O2SAT 92
[2025-02-22] MEDS: cefTRIAXone 1,000 mg SDV 1000 MG IVP (11:50)
--- NOTE | 2025-02-22 13:15 | P.DS_ITS ---
Discharge Providers Date of Admission: 02/20/25 14:58 Date of Discharge: February 22, 2025 Attending Provider at Admission: Amador Cabrera DO Attending Provider at Discharge: Amador Cabrera DO Consults: Internal medicine?hospitalist Primary Care Provider: Lola Naranjo NP Diagnoses at Discharge Discharge Diagnosis 1. S/P total right hip arthroplasty: 2. Osteoarthritis of right hip: Reason for Visit Reason for Visit: M16.11 Brief History: Status post right total hip arthroplasty Hospital Course Hospital Course Patient was brought to the hospital through the preoperative holding area with plan for right total hip arthroplasty for right hip dengerative joint disease. Once cleared by anesthesia for surgery subsequently was taken back to the operative suite underwent anesthesia per the anesthesia department and then underwent right total hip arthroplasty with Raciel robotic assistance posterior approach without any complications. Patient was then subsequently taken back to PACU in stable condition recovering well. Once recovered, patient was then subsequently admitted to the floor postoperatively. Internal medicine was consulted for medical management assistance. Patient weightbearing as tolerated to the right lower extremity, posterior hip precautions. PT/OT. Pain control. DVT prophylaxis. Postoperative antibiotics and TXA. dressing was change as needed. Internal medicine was on board and appreciate their medical management and assistance. Patient had orthostatics during postoperative day 1 for therapy as well as nausea and pain as a result of the initial day and recovered well from this and got up and improved with therapy much better on postoperative day 2. Pt was determined on postoperative day 2 the patient was stable for discharge from orthopedic as well as internal medicine standpoint. Patient's labs were monitored daily. Patient will receive appropriate pain medication as well as DVT prophylaxis postoperatively. Appropriate discharge instructions as well. Patient was then discharged in stable condition. Patient will discharge home. Pt will follow-up with Orthopedics in the office in 2 weeks. Patient understa nds and agrees with current plan. All questions answered. Understands there is any issues or concerns and contact the office. Physical Exam Narrative: Postop right total hip exam Postoperative maría elena incisional VAC dressing on in place with good seal no evidence of saturation compartment soft compressible normal postoperative swelling and tenderness palpation about the right hip second incision with Silverlon clean dry and intact. Patient's distal pulses intact 2+ calf soft nontender patient able to tolerate gentle hip range of motion with minimal pain or discomfort. She is able to perform a straight leg raise as well as able to plantarflex and dorsiflex ankle and wiggle toes. Normal postoperative tenderness palpation about the right hip Urinary Catheter Management: Dueñas: Cath Placed During This Visit: yes, but has since been removed by the nurse Reason for Continuing Indwelling Catheter: Decision to DC Catheter Urinary Catheter Date of Insertion: 02/20/25 Urinary Catheter Time of Insertion: 13:20 Date Urinary Catheter Removed: 02/21/25 Time Urinary Catheter Discontinued: 07:45 Discharge Data Studies Completed and Pending Completed Studies During Hospitalization Category Date Time Status XR chest 1V portable [id number] Routine Exams 02/22/25 00:32 Completed XR hip RT 2-3V wo/w pel* [id number] Routine Exams 02/20/25 15:00 Completed Pending at discharge Category Date Time Status Basic Metabolic Panel AM LABS Lab 02/23/25 04:00 Ordered Complete Blood Count w/Auto AM LABS Lab 02/23/25 04:00 Ordered Radiology Impressions Hip/Pelvis X-Ray 02/20/25 15:00 IMPRESSION: 1. Total RIGHT hip replacement in satisfactory position. Chest X-Ray 02/22/25 00:32 IMPRESSION: No acute findings. Laboratory Results WBC 11.78 10^3/uL (3.29-11.43) H 02/22/25 04:16 RBC 3.39 10^6/uL (3.85-5.65) L 02/22/25 04:16 Hgb 9.90 g/dL (11.27-16.99) L 02/22/25 04:16 Hct 30.1 % (36-47) L 02/22/25 04:16 MCV 88.8 fl (85-98) 02/22/25 04:16 MCH 29.2 pg (27-33) 02/22/25 04:16 MCHC 32.9 g/dL (30-55) 02/22/25 04:16 RDW 14.0 % (12.1-15.1) 02/22/25 04:16 Plt Count 192 10^3/cmm (157-399) 02/22/25 04:16 MPV 10.8 fL (7.4-10.4) H 02/22/25 04:16 Neut % (Auto) 77.4 % 02/22/25 04:16 Lymph % (Auto) 13.8 % 02/22/25 04:16 [place] % (Auto) 8.2 % 02/22/25 04:16 Eos % (Auto) 0.1 % 02/22/25 04:16 Baso % (Auto) 0.2 % 02/22/25 04:16 Neut # (Auto) 9.11 10^3/uL (1.8-7.7) H 02/22/25 04:16 Lymph # (Auto) 1.6 10^3/uL (0.8-4.8) 02/22/25 04:16 [place] # (Auto) 1.0 10^3/uL (0.2-0.9) H 02/22/25 04:16 Eos # (Auto) 0.0 10^3/uL (0.0-0.8) 02/22/25 04:16 Baso # (Auto) 0.0 10^3/uL (0.0-0.1) 02/22/25 04:16 Nucleated RBC % (auto) 0 % 02/22/25 04:16 Nucleated RBCs # 0.0 /100WBC 02/22/25 04:16 Sodium 138 mmol/L (136-145) 02/22/25 04:16 Potassium 3.9 mmol/L (3.5-5.1) 02/22/25 04:16 Chloride 103 mmol/L (98-107) 02/22/25 04:16 Carbon Dioxide 25 mmol/L (22-29) 02/22/25 04:16 Anion Gap 13.9 (5-19) 02/22/25 04:16 BUN 23 mg/dL (8-23) 02/22/25 04:16 Creatinine 0.8 mg/dL (0.5-0.9) 02/22/25 04:16 GFR Calculation 70.9 mL/min (90-130) L 02/22/25 04:16 Glucose 141 mg/dL (65-115) H 02/22/25 04:16 Calculated Osmolality 292 mOsm/kg (285-295) 02/22/25 04:16 Calcium 8.8 mg/dL (8.5-10.5) 02/22/25 04:16 Urine Color Yellow (Yellow) 02/22/25 09:40 Urine Appearance Cloudy (CLEAR) A 02/22/25 09:40 Urine pH 5.5 (5-7) 02/22/25 09:40 Ur Specific [place] 1.036 (1.005-1.030) H 02/22/25 09:40 Urine Protein Trace (Negative) A 02/22/25 09:40 Urine Glucose (UA) 1+ (Normal) H 02/22/25 09:40 Urine Ketones Trace (Negative) 02/22/25 09:40 Urine Blood Negative (Negative) 02/22/25 09:40 Urine Nitrate Negative (Negative) 02/22/25 09:40 Urine Bilirubin Negative (Negative) 02/22/25 09:40 Urine Urobilinogen 0.2 mg/dL (Negative) 02/22/25 09:40 Ur Leukocyte Esterase Trace (Negative) A 02/22/25 09:40 Urine RBC 0-2 /hpf (0-2) 02/22/25 09:40 Urine WBC 11-20 /hpf (0-5) H 02/22/25 09:40 Ur Squamous Epith Cells 21-50 /hpf (0-5) H 02/22/25 09:40 Amorphous Sediment Not Reportable 02/22/25 09:40 Urine Bacteria None seen /hpf (NONE) 02/22/25 09:40 Hyaline Casts 19.43 /lpf 02/22/25 09:40 Urine Mucus 2+ /hpf 02/22/25 09:40 Blood Type A Negative 02/20/25 10:40 Rho(D) Type Rh negative 02/20/25 10:40 Antibody Screen Negative 02/20/25 10:40 Vitals Last Vital Signs Temp 99.2 F 02/22/25 11:15 Pulse 73 02/22/25 11:15 Resp 14 02/22/25 11:15 BP 107/58 02/22/25 11:15 Pulse Ox 92 02/22/25 11:15 O2 Del Method Room Air 02/22/25 11:15 O2 Flow Rate 8 02/20/25 15:21 Discharge Plan Discharge Patient Disposition: Home Condition: Stable Prescriptions: New Eliquis 2.5 mg tablet 2.5 mg PO BID 14 Days Qty: 28 0RF midodrine 5 mg Tablet 5 mg PO TID 7 Days Qty: 21 0RF cyclobenzaprine 10 mg tablet 10 mg PO TID PRN (Reason: muscle spasm) 7 Days Qty: 21 0RF tramadol 50 mg tablet 50 mg PO Q6H PRN (Reason: pain) 7 Days Qty: 28 0RF cefadroxil 500 mg capsule 500 mg PO BID 7 Days Qty: 14 0RF Continued multivitamin [One Daily Multivitamin] Tablet 1 tab PO DAILY Held ibuprofen 800 mg tablet 800 mg PO Q8H PRN (Reason: Pain) Hold Instructions: Resume on 03/29/25. Multimedia Artist OK for DC: Orthopedics and Hospitalist Discharge Order = DC NOW: Discharge Order (Routine); Ordered 02/22/25 Ordered By: Amador Cabrera Other Ambulatory Orders: Physical Therapy Eval and Treat Outpatient (Order) Timeframe: 3 Days Facility: [facility] - Location: Physical Therapy Ordered By: Amador Cabrera Referrals: [facility] Outpatient Therapy [Outside] - 03/01/25 2:00 pm Referral Note: You will need to follow up at the [facility]. Lola Naranjo NP [Primary Care Provider, Nurse Practitioner] - 02/23/25 1:30 pm Amador Cabrera DO [Physician, Orthopedics] - 03/08/25 9:00 am Discharge Diet: Regular Discharge Activity: Limit activity as instructed and Use walker/crutches as instructed Patient Instructions: Cefadroxil (By mouth) (Duricef), Cyclobenzaprine (By mouth) (Flexeril, Amrix, Fexmid, FusePaq..., Tramadol (By mouth) (Ultram, Ultram ER, Ryzolt, Theratramadol-60, Qdolo), Ondansetron (By mouth), Midodrine (By mouth), Apixaban (By mouth), Acute Wound Care (DC), Precautions after Total Joint Replacement Surgery (DC), Total Hip Replacement (GEN), Opioid Safety, Post Anesthesia Care, Patient Portal & Rosa Instructions Activity Restrictions/Additional Instructions: Orthopedic discharge instructions: Patient should keep dressings clean dry and intact Sponge bath until follow-up Keep maría elena incisional VAC dressing on in place only change if greater than 50% saturated there is a spare dressing provided at discharge. Otherwise leave operative hip incision dressing on until follow-up Keep incisions clean dry and intact, leave Silverlon bandage for second incision on the hip wing on in place for 7 days after that may rinse incisions with warm soapy water pat dry and redress with a dry dressing Weight-bear as tolerated to operative lower extremity Posterior hip precautions as instructed by physical therapy--posterior avoid hip flexion past 90 degrees, adduction, avoid internal rotation When sleeping or lying in bed in supine position use abduction pillow to prevent legs from crossing midline Ice as needed for pain and swelling Take pain medication as prescribed Take antinausea medication as needed Take antibiotic as prescribed May supplement for pain with Tylenol [id number] as needed(1000 mg every 8 hours-do not exceed more than 3000mg in 24-hour period) Supplement with Citracal vitamin D for bone health and healing Pain medication can cause constipation. take [id number] stool softeners and or MiraLAX. Take blood thinner as prescribed (Eliquis) Follow-up in the orthopedic office in 2 weeks Contact the office for any questions or concerns Discharge Attestations Time Spent in Discharge Care*: less than 30 min Quality Metrics Clinical Quality Measures [ No reported AMI, CVA or VTE this stay] Coding Level of Care Code Acute Code for Chg Fwd Diagnoses S/P total right hip arthroplasty Z96.641 Osteoarthritis of right hip M16.11
== END 2025-02-22 14:36 | disposition home or self-care (01) ==
LOC: MEDSURG 14:59
PROVIDERS: Family Medicine; Physician Assistant; Admitting Provider Student in an Organized Health Care Education/Training Program; PCP Nurse Practitioner Family; Visit Provider Student in an Organized Health Care Education/Training Program
PROC: 8E0Y0CZ Robotic Assisted Procedure of Lower Extremity, Open Approach (ICD-10-PCS; CPT 27130; principal; 2025-02-20 12:50)
DX: M16.11 Unilateral primary osteoarthritis, right hip (principal); I95.9 Hypotension, unspecified
CPT/HCPCS: 27130; 20985; 36415; 51702; 71045; 73502; 80048; 81001; 85025; 86850; 86900; 97110; 97116; 97162; 97167; 97530; C1776; G0378; J0131; J0690; J0696; J1171; J1885; J2405; J2704; J3373; J3490; J7030; J7120; J9999

== ENCOUNTER 2025-02-25 11:15 | Emergency (ER) | payer MEDICARE, MEDICAID, SELFPAY ==
[2025-02-25 11:28] VITALS: BP 140/66; PULSE 73; RESP 17; TEMP 37; O2SAT 94; BMI 30.9
[2025-02-25 12:16] LABS: Hematocrit 29.8 % (36-47); Hemoglobin 9.40 g/dL (11.27-16.99); Mean Corpuscular HGB Conc 31.5 g/dL (30-55); Mean Corpuscular Hemoglobin 28.2 pg (27-33); Mean Corpuscular Volume 89.5 fl (85-98); Nucleated Red Blood Cells % 0 %; Platelet Count 253 10^3/cmm (157-399); Red Blood Count 3.33 10^6/uL (3.85-5.65); White Blood Count 7.43 10^3/uL (3.29-11.43)
[2025-02-25 12:37] LABS: Blood Urea Nitrogen 14 mg/dL (8-23); Calcium 8.8 mg/dL (8.5-10.5); Carbon Dioxide 29 mmol/L (22-29); Chloride 101 mmol/L (98-107); Creatinine Clr Calc Pharmacy 67.6387; Glucose 104 mg/dL (65-115); Osmolality Calculated 285 mOsm/kg (285-295); Sodium 137 mmol/L (136-145)
[2025-02-25 12:59] LABS: Anion Gap 10.8 (5-19); Potassium 3.8 mmol/L (3.5-5.1)
--- NOTE | 2025-02-25 13:08 | ED_ITS ---
HPI - Skin/Abscess/Foreign Bdy 2 General: Chief complaint: Skin/Abscess/Foreign Body Stated complaint: Post Surgery L leg Blood Pocket Time Seen by Provider: 02/25/25 11:43 History of Present Illness: 70-year-old female presents emergency ro om she has a serous blister anterior and slightly inferior to her recent hip surgical incision. There is no redness no erythema she denies any fever sweats chills no recent falls or other injury. Associated symptoms: Deny chills or fever(s) Related Data Home Medications ?Medication ?Instructions ?Recorded ?Confirmed ibuprofen 800 mg tablet 800 mg PO Q8H PRN Pain 01/3002/16/25 Held on 02/22/25. Instructions: Resume on 03/29/25. multivitamin (One Daily 1 tab PO DAILY 01/30/2510/05 Multivitamin tablet) Previous Rx's ?Medication ?Instructions ?Recorded apixaban 2.5 mg tablet (Eliquis) 2.5 mg PO BID 2 weeks #28 tabs 02/20/25 cefadroxil 500 mg capsule 500 mg PO BID Postop total h ip 02/22/25 infection prevention 7 days #14 caps cyclobenzaprine 10 mg tablet 10 mg PO TID PRN muscle s pasm 7 02/22/25 days #21 tabs midodrine 5 mg tablet 5 mg PO TID 7 days #21 tabs 02/22/25 tramadol 50 mg tablet 50 mg PO Q6H PRN pain 7 days #28 02/22/25 tabs Allergies Allergy/AdvReac Type Severity Reaction Status Date / Time No Known Allergies Allergy Verified 02/10/25 08:37 Review of Systems 2 Const: Denies: fever(s) or chills Card: Denies: chest pain Resp: Denies: dyspnea GI: Denies: abdominal pain : Denies: dysuria, urinary frequency or urinary urgency Musc: Denies: neck pain or back pain Skin/Breast: Denies: rash PFSH ED 2 PFSH: Medical History Bilateral hip pain Social History Smoking and tobacco/nicotine status: never used tobacco/nicotine Alcohol intake: never Substance/Drug Use: never Physical Exam 2 Const: COMMON NORMALS: no acute distress GENERAL APPEARANCE: cooperative and comfortable ORIENTATION/CONSCIOUSNESS: Yes awake, Yes oriented to person, Yes oriented to place and Yes oriented to time HENMT: COMMON NORMALS: normocephalic, atraumatic and hearing grossly normal bilaterally HEAD & SCALP: normocephalic and atraumatic Resp: COMMON NORMALS: normal respiratory effort, No retractions, No use of accessory muscles and clear to auscultation bilaterally AUSCULTATION: clear to auscultation bilaterally Cardio: COMMON NORMALS: regular rate, regular rhythm and No murmurs present (Cardio) RATE: regular rate RHYTHM: regular rhythm Extremity: COMMON NORMALS: normal to inspection, capillary refill normal, no clubbing, cyanosis or edema, no calf tenderness and no pedal edema Neuro: SENSORIUM/ORIENTATION: Yes oriented to person, Yes oriented to place and Yes oriented to time Skin: COMMON NORMALS: no rashes or lesions noted GENERAL SKIN EXAM: no rashes or lesions noted OTHER: Course 2 Vital Signs: Vital signs: Vital Signs Temperature 98.6 F 02/25/25 11:28 Pulse Rate 73 02/25/25 11:28 Respiratory Rate 17 02/25/25 11:28 Blood Pressure 140/66 02/25/25 11:28 Pulse Oximetry 94 02/25/25 11:28 Oxygen Delivery Me thod Room Air 02/25/25 11:28 MDM - Skin/Abscess/Foreign Bdy Medicial Decision Making Patient seen evaluated has had serous blister that has the appearance of a fracture blister DrKacey of the orthopedic on-call with a white count normal and no other symptoms I think it may be soft tissue trauma from manipulation during the surgery. No intervention at this time they recommend short-term follow-up with Dr. Cabrera in the office continue same restrictions that were given at discharge Medical Records I reviewed the patient's medical records. Lab Data I reviewed the patient's lab results. 02/25/25 12:06 02/25/25 12:06 Laboratory Results WBC 7.43 10^3/uL (3.29-11.43) 02/25/25 12:06 RBC 3.33 10^6/uL (3.85-5.65) L 02/25/25 12:06 Hgb 9.40 g/dL (11.27-16.99) L 02/25/25 12:06 Hct 29.8 % (36-47) L 02/25/25 12:06 MCV 89.5 fl (85-98) 02/25/25 12:06 MCH 28.2 pg (27-33) 02/25/25 12:06 MCHC 31.5 g/dL (30-55) 02/25/25 12:06 RDW 13.4 % (12.1-15.1) 02/25/25 12:06 Plt Count 253 10^3/cmm (157-399) 02/25/25 12:06 MPV 10.2 fL (7.4-10.4) 02/25/25 12:06 Neut % (Auto) 75.4 % 02/25/25 12:06 Lymph % (Auto) 12.9 % 02/25/25 12:06 [place] % (Auto) 8.6 % 02/25/25 12:06 Eos % (Auto) 2.4 % 02/25/25 12:06 Baso % (Auto) 0.4 % 02/25/25 12:06 Neut # (Auto) 5.60 10^3/uL (1.8-7.7) 02/25/25 12:06 Lymph # (Auto) 1.0 10^3/uL (0.8-4.8) 02/25/25 12:06 [place] # (Auto) 0.6 10^3/uL (0.2-0.9) 02/25/25 12:06 Eos # (Auto) 0.2 10^3/uL (0.0-0.8) 02/25/25 12:06 Baso # (Auto) 0.0 10^3/uL (0.0-0.1) 02/25/25 12:06 Nucleated RBC % (auto) 0 % 02/25/25 12:06 Nucleated RBCs # 0.0 /100WBC 02/25/25 12:06 Sodium 137 mmol/L (136-145) 02/25/25 12:06 Potassium 3.8 mmol/L (3.5-5.1) 02/25/25 12:06 Chloride 101 mmol/L (98-107) 02/25/25 12:06 Carbon Dioxide 29 mmol/L (22-29) 02/25/25 12:06 Anion Gap 10.8 (5-19) 02/25/25 12:06 BUN 14 mg/dL (8-23) 02/25/25 12:06 Creatinine 0.6 mg/dL (0.5-0.9) 02/25/25 12:06 GFR Calculation 98.8 mL/min (90-130) 02/25/25 12:06 Glucose 104 mg/dL (65-115) 02/25/25 12:06 Calculated Osmolality 285 mOsm/kg (285-295) 02/25/25 12:06 Calcium 8.8 mg/dL (8.5-10.5) 02/25/25 12:06 No radiology studies performed this visit Discharge Plan Discharge Patient Disposition: Home Clinical Impression: Blister, S/P total right hip arthroplasty Condition: Stable Prescriptions: No Action multivitamin [One Daily Multivitamin] Tablet 1 tab PO DAILY ibuprofen 800 mg tablet 800 mg PO Q8H PRN (Reason: Pain) Eliquis 2.5 mg tablet 2.5 mg PO BID 14 Days Qty: 28 0RF midodrine 5 mg Tablet 5 mg PO TID 7 Days Qty: 21 0RF cyclobenzaprine 10 mg tablet 10 mg PO TID PRN (Reason: muscle spasm) 7 Days Qty: 21 0RF tramadol 50 mg tablet 50 mg PO Q6H PRN (Reason: pain) 7 Days Qty: 28 0RF cefadroxil 500 mg capsule 500 mg PO BID 7 Days Qty: 14 0RF Discharge Orders: Discharge ED (Routine); Ordered 02/25/25 Ordered By: Yung Oliveira Referrals: Lola Naranjo NP [Primary Care Provider, Nurse Practitioner] Patient Instructions: Opioid Safety, Pain Management, Patient Portal & Rosa Instructions Activity Restrictions/Additional Instructions: [facility] you [facility] for your [facility] needs today. It is very important that you follow up as instructed or that you return to the Emergency Department should you have concerns or if your condition changes or worsens in any way. Emergency department visits are focused on emergent conditions, in some cases you may require further evaluation on an outpatient basis. You were seen in the emergency room with a blister near the site of your incision. Your white count was normal and the rest your exam is unremarkable we talked to the on-call orthopedist who think this may be due to to manipulation of tissue during the procedure. Recommend that you follow-up with Dr. Alvarez early next week. (Please note that included in your discharge packet is information concerning opioid safety and pain management. This information is given to all patients were discharged from the ER regardless of their discharge diagnosis or the medicines they usually take or are prescribed.) Print Language: Irish Coding Level of Care Code ED Sample Finisher for Valery Preciado
[2025-02-25 14:02] VITALS: BP 135/73; PULSE 72; O2SAT 98
== END 2025-02-25 14:07 | disposition home or self-care (01) ==
PROVIDERS: Emergency Provider Family Medicine; PCP Nurse Practitioner Family
DX: Z96.641 Presence of right artificial hip joint (principal); S70.322A Blister (nonthermal), left thigh, initial encounter; X58.XXXA Exposure to other specified factors, initial encounter; Z79.01 Long term (current) use of anticoagulants
CPT/HCPCS: 36415; 80048; 85025; 99283

== ENCOUNTER → 2025-03-08 13:30 | Outpatient (BNVA) | payer MEDICARE, MEDICAID, SELFPAY | PROVIDERS: PCP Nurse Practitioner Family; Visit Provider Student in an Organized Health Care Education/Training Program | DX: Z96.641 Presence of right artificial hip joint (principal) | CPT/HCPCS: 73502; 99024 ==

== ENCOUNTER → 2025-03-22 13:53 | Outpatient (BNVA) | payer MEDICARE, MEDICAID, SELFPAY | PROVIDERS: PCP Nurse Practitioner Family; Visit Provider Physician Assistant | DX: Z98.890 Other specified postprocedural states (principal); Z96.641 Presence of right artificial hip joint | CPT/HCPCS: 73502; 99024 ==